=== PATIENT | female | born 1985 | race American Indian/Alaskan Native ===

== ENCOUNTER 2017-03-22 15:29 | Outpatient (CLI) | payer OTHER ==
--- NOTE | 2017-03-23 10:22 | Mammography Report ---
BILATERAL DIGITAL DIAGNOSTIC MAMMOGRAM with CAD and BILATERAL BREAST ULTRASOUND: 03/22/17 CLINICAL: Bilateral breast pain. COMPARISON:None. These are baseline studies. FINDINGS: The breasts are predominantly fatty with bilateral scattered fibroglandular densities.No mass, architectural distortion or suspicious calcifications. Ultrasound of the right breast (including all four quadrants and the retroareolar area) demonstrated normal fibroglandular and fatty structures. No mass, cyst or shadowing. Ultrasound of the left breast (including all four quadrants and the retroareolar area) demonstrated normal fibroglandular and fatty structures. No mass, cyst or shadowing. IMPRESSION: Negative bilateral mammogram andnegative bilateral breast ultrasound. No explanation for bilateral breast pain. BI-RADS CATEGORY: 1 -- Negative RECOMMENDATION: Clinical followup and routine mammographic screening based on ACS guidelines. COMMENT: Patient follow-up letters are generated by our [employer] application.
== END 2017-03-22 15:30 | disposition home or self-care (01) ==
LOC: SPVWC 15:29
DX: N64.4 Mastodynia (principal)
CPT/HCPCS: 76641; G0204; 77066